=== PATIENT | male | born 1970 | race Caucasian/White ===

== ENCOUNTER → 2017-07-19 | Outpatient (CLI) | payer BC ==
--- NOTE | 2017-07-19 16:42 | XR ---
Limited left elbow HISTORY: Pain 2 views of the left elbow No comparisons There is no evident joint effusion. Bone mineralization, joint spaces and alignment are maintained. IMPRESSION: No fracture or dislocation evident.
== END | disposition home or self-care (01) ==
LOC: RADXRMAIN 15:26
PROVIDERS: ATTEND Family Medicine
DX: M25.522 Pain in left elbow (principal)

== ENCOUNTER → 2021-07-13 | Outpatient (CLI) | payer BC ==
--- NOTE | 2021-07-13 11:23 | MM ---
Reason for exam: clinical finding. Physical Findings: Nurse did not find any significant physical abnormalities on exam. MG 3D Diag Mammo W/Cad KENA Bilateral CC and MLO view(s) were taken. There are scattered fibroglandular densities. Focal asymmetry left subareolar, likely gynecomastia. These results were verbally communicated with the patient and result sheet given to the patient on 07/13/21. ASSESSMENT: Benign, BI-RAD 2 RECOMMENDATION: Clinical management of both breasts. Manage patient on a clinical basis.
--- NOTE | 2021-07-13 11:24 | USB ---
Reason for exam: clinical finding. US Breast Limited LT Left limited breast ultrasound including focal area of concern, retroareolar and axilla demonstrates a 1.3 x 0.8cm hypoechoic lesion at the nipple. These results were verbally communicated with the patient and result sheet given to the patient on 07/13/21. ASSESSMENT: Benign, BI-RAD 2 RECOMMENDATION: Clinical management of the left breast.
== END | disposition home or self-care (01) ==
LOC: RADMAMWWP 07:49
PROVIDERS: ATTEND Family Medicine
DX: N63.20 Unspecified lump in the left breast, unspecified quadrant (principal)
CPT/HCPCS: 77062; 77066

== ENCOUNTER → 2022-12-18 | Outpatient (CLI) | payer BC ==
--- NOTE | 2022-12-18 07:23 | XR ---
EXAMINATION TYPE: XR shoulder complete RT DATE OF EXAM: 12/18/2022 6:17 AM INDICATION: Patient age:Male; 52 years old; Reason for study: M25.511; COMPARISON: None TECHNIQUE: The right shoulder was examined in AP, internally rotated and scapular Y projections. FINDINGS: No evidence of acute osseous pathology, joint dislocation, or soft tissue swelling. The remaining por tions of the visualized chest are unremarkable. IMPRESSION: No acute osseous pathology.
--- NOTE | 2022-12-19 05:27 | MR ---
EXAMINATION TYPE: MR shoulder RT wo con DATE OF EXAM: 12/18/2022 COMPARISON: Right shoulder x-ray December 18, 2022 HISTORY: Right shoulder pain with difficulty raising arm overhead, no trauma. TECHNIQUE: Multiplanar, multisequence imaging of the right shoulder is performed without contrast. FINDINGS: Rotator Cuff: Distal supraspinatus and infraspinatus tendons are intact. Subscapularis tendon intact. Rotator cuff muscle bulk preserved. Acromioclavicular Joint: Mild to moderate narrowing. Mild capsular hypertrophy. No significant spurri ng. Distal acromion morphology unremarkable. Glenohumeral Joint: No significant spurring or effusion. Labrum: The labrum appears grossly intact given limitation of non-arthrogram study. Biceps Tendon: The long head of biceps is in normal location within bicipital groove. Bone marrow signal: No focal abnormal marrow signal is appreciated. Other: No additional significant abnormality is appreciated. IMPRESSION: No rotator cuff or labral tear is seen.
== END | disposition home or self-care (01) ==
LOC: RADMRIMAIN 05:52
PROVIDERS: ATTEND Family Medicine
DX: M25.511 Pain in right shoulder (principal)

== ENCOUNTER → 2022-12-18 | Outpatient (CLI) | payer BC ==
--- NOTE | 2022-12-18 09:38 | US ---
EXAMINATION TYPE: US prostate transrectal DATE OF EXAM: 12/18/2022 COMPARISON: NONE CLINICAL INDICATION: Male, 52 years old with history of N40.0 BENIGN PROSTATE HYPERPLASIA; This examination was performed using the transrectal probe. EXAM MEASUREMENTS: Gland Size: 4.5 x 2.4 x 4.0cm Volume: 23.1ml Predicted PSA: 2.77 Actual PSA (if available):0.75 Not enlarged, no masses seen IMPRESSION: No suspicious masses. Predicted PSA = volume x 0.12 ng/ml Calculated Volume = 0.5236 x L x W x H
== END | disposition home or self-care (01) ==
LOC: RADUSWWP 05:49
PROVIDERS: ATTEND Family Medicine
DX: N40.0 Benign prostatic hyperplasia without lower urinary tract symptoms (principal)
CPT/HCPCS: 76872